=== PATIENT | female | born 1950 | race Asian ===

== ENCOUNTER 2018-03-16 14:06 | Outpatient (CLI) | payer MEDICARE, OTHER ==
--- NOTE | 2018-03-16 15:14 | XRAY Report ---
Reason: RT SHOULDER PAIN Procedure Date: 03/16/2018 Accession Number: [id number] / [id number] Procedure: XR - Shoulder 3 View RT CPT Code: FULL RESULT: EXAM: RIGHT SHOULDER RADIOGRAPHY EXAM DATE: 03/16/2018 02:46 PM. CLINICAL HISTORY: Right shoulder pain after fall on Friday. The patient dislocated her shoulder 25 years ago. COMPARISON: None. TECHNIQUE: 3 views. FINDINGS: There is an anterior inferior dislocation of the humerus. The acromioclavicular joint is unremarkable. No fractures identified. IMPRESSION: Dislocation. RADIA
== END 2018-03-16 14:07 | disposition home or self-care (01) ==
LOC: DI 14:06
PROVIDERS: ATTEND Internal Medicine
DX: S43.014A Anterior dislocation of right humerus, initial encounter (principal)

== ENCOUNTER 2018-03-16 15:12 | Emergency (ER) | payer MEDICARE, OTHER ==
[2018-03-16 15:46] VITALS: BP 130/76
--- NOTE | 2018-03-16 17:29 | ED Physician Documentation ---
PD HPI UPPER EXT INJURY - Stated complaint Stated Complaint: R SHOULDER INJ - Chief complaint Chief Complaint: Ext Problem - History obtained from History obtained from: Patient - History of Present Illness Location: Right, Shoulder Where injury occurred: Home Timing - onset: How many days ago (2) Timing - duration: Days (2) Timing - details: Abrupt onset Pain level max: 5 Pain level now: 4 Improved by: Rest, Immobilization Worsened by: Moving, Palpating Associated symptoms: Swelling. No: Weakness, Numbness, Tingling Contributing factors: No: Anticoagulated, Prior ortho surgery, Prosthetic joint Similar symptoms before: Diagnosis (shoulder dislocation) - Additonal information Additional information: Patient was playing [employer] and dislocated her right shoulder 2 days ago. It is still dislocated today. Noted on an outpatient x-ray to have an anterior inferior shoulder dislocation. States her last shoulder dislocation was 25 years ago Review of Systems Constitutional: denies: Fever, Chills Nose: denies: Rhinorrhea / runny nose, Congestion Throat: denies: Sore throat Cardiac: denies: Chest pain / pressure GI: denies: Vomiting, Diarrhea Skin: denies: Rash Musculoskeletal: denies: Neck pain, Back pain Neurologic: denies: Focal weakness, Numbness, Headache PD PAST MEDICAL HISTORY - Past Medical History Past Medical History: No - Present Medications Home Medications: Ambulatory Orders Medication Instructions Recorded Confirmed Aspirin 03/16/18 raNITIdine [Zantac] 150 mg PO DAILY 03/16/18 03/16/18 - Allergies Allergies/Adverse Reactions: Allergies Allergy/AdvReac Type Severity Reaction Status Date / Time No Known Drug Allergies Allergy Verified 03/16/18 15:46 - Social History Does the pt smoke?: No Smoking Status: Never smoker PD ED PE NORMAL - Vitals Vital signs reviewed: Yes - General General: Alert and oriented X 3, No acute distress - HEENT HEENT: Moist mucous membranes - Neck Neck: Supple, no meningeal sign - Cardiac Cardiac: RRR - Respiratory Respiratory: No respiratory distress, Clear bilaterally - Derm Derm: Warm and dry - Extremities Extremities: Other (Deformity noted at the glenohumeral joint of the right shoulder. Neurovascularly intact including the axillary nerve) - Neuro Neuro: Alert and oriented X 3 Results - Vitals Vitals: Vital Signs - 24 hr 03/16/18 15:42 Temperature 36.9 C Heart Rate 83 Respiratory 14 Rate Blood Pressure 130/76 O2 Saturation 98 Oxygen O2 Source Room air - Rads (name of study) R shoulder xray - post reduction Radiology: Prelim report reviewed, EMP read contemporaneously, See rad report ( The previously seen right glenohumeral joint dislocation has been relocated into anatomic alignment. No dislocation. No acute fracture is seen. ) Procedures - Reduction Body part reduced: Right, Shoulder Fracture or dislocation: Dislocation Shoulder reduction technique: Other (sergei method) Reduction aftercare: NV intact, Xray confirms reduction, Sling, Patient tolerated well PD MEDICAL DECISION MAKING - ED course Complexity details: reviewed results, re-evaluated patient, considered differential, d/w patient, d/w underwriting consultant ED course: Patient is a 67-year-old female who presents to the emergency department With a right anterior-inferior shoulder dislocation for the past 2 days. This is able to be reduced in the emergency department. Tolerated well. No fracture or persistent dislocation on repeat x-ray. Placed in a sling. We will have her follow-up with Dr. Beltran, orthopedics next week. Patient counseled regarding signs and symptoms for which I believe and urgent re-evaluation would be necessary. Patient with good understanding of and agreement to plan and is comfortable going home at this time This document was made in part using voice recognition software. While efforts are made to proofread this document, sound alike and grammatical errors may occur. Neurovascularly intact including the axillary nerve - Sepsis Event Vital Signs: Vital Signs - 24 hr 03/16/18 15:42 Temperature 36.9 C Heart Rate 83 Respiratory 14 Rate Blood Pressure 130/76 O2 Saturation 98 Oxygen O2 Source Room air Departure - Departure Disposition: 01 Home, Self Care Clinical Impression: Shoulder dislocation, recurrent Qualifiers: Laterality: right Qualified Code(s): M24.411 - Recurrent dislocation, right shoulder Condition: Good Instructions: ED Dislocation Shoulder Redu Follow-Up: Emilia Vera MD [Primary Care Provider] - Sabrina Beltran MD [Provider Admit Priv/Credential] - Within 1 week Comments: Wear the sling until seen by Dr. Beltran. Return if you worsen. Discharge Date/Time: 03/16/18 17:50
--- NOTE | 2018-03-16 17:49 | XRAY Report ---
Reason: s/p reduction Procedure Date: 03/16/2018 Accession Number: [id number] / [id number] Procedure: XR - Shoulder 2 View RT CPT Code: FULL RESULT: EXAM: RIGHT SHOULDER RADIOGRAPHY EXAM DATE: 03/16/2018 05:31 PM. CLINICAL HISTORY: Postreduction images for right shoulder dislocation. COMPARISON: SHOULDER 3 VIEW RT 03/16/2018. TECHNIQUE: 2 views. FINDINGS: The previously seen right glenohumeral joint dislocation has been relocated into anatomic alignment. No dislocation. No acute fracture is seen. IMPRESSION: The previously seen right glenohumeral joint dislocation has been relocated into anatomic alignment. No dislocation. No acute fracture is seen. RADIA
== END 2018-03-16 17:50 | disposition home or self-care (01) ==
LOC: ED 15:12
DX: M24.411 Recurrent dislocation, right shoulder (principal); Y93.59 Activity, other involving other sports and athletics played individually; S43.014A Anterior dislocation of right humerus, initial encounter
CPT/HCPCS: 23650; 99283

== ENCOUNTER 2018-04-01 08:06 | Outpatient (CLI) | payer MEDICARE, OTHER ==
--- NOTE | 2018-04-03 13:35 | Mammography Report ---
Reason: SCREENING MAMMO Procedure Date: 04/01/2018 Accession Number: [id number] / [id number] Procedure: [facility]SH[facility] - Screening Mammo Dig Bilat CPT Code: FULL RESULT: EXAM: Screening Mammo Dig Bilat DATE: 04/01/2018 8:41 AM CLINICAL HISTORY: Screening mammogram TECHNIQUE: Bilateral CC and MLO views were obtained. COMPARISON: Mammogram 08/24/2014 FINDINGS: The breast parenchyma is heterogeneously dense which may limit the sensitivity of mammography. There is a benign-appearing calcification in the left breast. No suspicious masses, clustered microcalcifications, or regions of architectural distortion are identified. IMPRESSION: Benign findings RECOMMENDATION: Routine annual screening unless otherwise clinically indicated. BIRADS CATEGORY 2: Benign findings STANDARD QUALIFYING STATEMENTS: 1. This examination was reviewed with the aid of Computer-Aided Detection (CAD). 2. A negative or benign imaging report should not delay biopsy if clinically suspicious findings are present. Consider surgical consultation if warrented. More than 5% of cancers are not identified by imaging. 3. Dense breasts may obscure an underlying neoplasm.
== END 2018-04-01 08:07 | disposition home or self-care (01) ==
LOC: DI 08:06
PROVIDERS: ATTEND Internal Medicine
DX: Z12.31 Encounter for screening mammogram for malignant neoplasm of breast (principal)
CPT/HCPCS: 77067